=== PATIENT | female | born 1960 | race African-American/Black ===

== ENCOUNTER 2017-12-06 08:09 | Emergency (ER) | payer OTHER ==
[~2017-12-06] VITALS: Ht 172.7 cm; Wt 80.7 kg
[2017-12-06 08:16] VITALS: Ht 172.7 cm; Wt 80.7 kg
[2017-12-06 09:42] VITALS: BP 157/86
== END 2017-12-06 09:42 | disposition home or self-care (01) ==
LOC: ED 08:09
DX: M75.32 Calcific tendinitis of left shoulder (principal); I10 Essential (primary) hypertension; M19.90 Unspecified osteoarthritis, unspecified site; Z88.8 Allergy status to other drugs, medicaments and biological substances

== ENCOUNTER 2017-12-07 05:37 | Emergency (ER) | payer OTHER ==
[~2017-12-07] VITALS: Ht 172.7 cm; Wt 80.0 kg
[2017-12-07 05:44] VITALS: Ht 172.7 cm; Wt 80.0 kg
[2017-12-07 11:30] VITALS: BP 135/78
== END 2017-12-07 11:30 | disposition home or self-care (01) ==
LOC: ED 05:37
DX: M75.32 Calcific tendinitis of left shoulder (principal); I10 Essential (primary) hypertension; M19.90 Unspecified osteoarthritis, unspecified site; Z88.8 Allergy status to other drugs, medicaments and biological substances
CPT/HCPCS: J1885

== ENCOUNTER 2018-03-24 15:14 | Emergency (ER) | payer OTHER ==
[~2018-03-24] VITALS: Ht 172.7 cm; Wt 82.6 kg
[2018-03-24 15:50] VITALS: Ht 172.7 cm; Wt 82.6 kg
[2018-03-24 17:01] VITALS: BP 148/75
== END 2018-03-24 17:01 | disposition home or self-care (01) ==
LOC: ED 15:14
DX: N61.0 Mastitis without abscess (principal); I10 Essential (primary) hypertension; M19.90 Unspecified osteoarthritis, unspecified site; Z88.8 Allergy status to other drugs, medicaments and biological substances

== ENCOUNTER 2018-04-26 22:50 | Emergency (ER) | payer OTHER ==
[~2018-04-26] VITALS: Ht 170.2 cm; Wt 76.7 kg
[2018-04-26 22:54] VITALS: BP 141/96; Ht 170.2 cm; Wt 76.7 kg
== END 2018-04-26 23:17 | disposition home or self-care (01) ==
LOC: ED 22:50
DX: R21 Rash and other nonspecific skin eruption (principal); I10 Essential (primary) hypertension; Z88.8 Allergy status to other drugs, medicaments and biological substances

== ENCOUNTER 2018-06-29 10:11 | Emergency (ER) | payer OTHER ==
[~2018-06-29] VITALS: Ht 170.2 cm; Wt 78.0 kg
[2018-06-29 10:19] VITALS: BP 168/89; Ht 170.2 cm; Wt 78.0 kg
== END 2018-06-29 11:26 | disposition home or self-care (01) ==
LOC: ED 10:11
DX: E07.9 Disorder of thyroid, unspecified (principal); R07.0 Pain in throat; R05 Cough; I10 Essential (primary) hypertension; M19.90 Unspecified osteoarthritis, unspecified site; Z88.8 Allergy status to other drugs, medicaments and biological substances